=== PATIENT | male | born 1960 | race Caucasian/White ===

== ENCOUNTER 2018-06-29 15:58 | Emergency (ER) | payer OTHER ==
[~2018-06-29] VITALS: Ht 185.4 cm; Wt 117.9 kg
[2018-06-29] MEDS ORDERED: Flonase 0.05% N16 GM (16:38)
[2018-06-29] MEDS ORDERED: SINUS 12 HOUR120 MG PO (16:38)
== END 2018-06-29 16:47 | disposition home or self-care (01) ==
LOC: ER 15:58
DX: J32.9 Chronic sinusitis, unspecified (principal); F17.290 Nicotine dependence, other tobacco product, uncomplicated
CPT/HCPCS: 99283